=== PATIENT | male | born 1980 | race Caucasian/White ===

== ENCOUNTER 2018-08-11 08:03 | Emergency (ER) | payer MEDICAID, OTHER ==
[~2018-08-11] VITALS: Ht 172.7 cm; Wt 64.0 kg
[2018-08-11 09:27] LABS: BASOPHILS % (AUTO) 1.3 % (0.0-2.0); EOSINOPHILS % (AUTO) 6.3 % (1.0-6.0); HEMOGLOBIN 16.3 g/dL (13.5-17.5); LYMPHOCYTES % (AUTO) 19.8 % (22.0-44.0); MEAN CORPUSCULAR HEMOGLOBIN 34.4 pg (26.0-34.0); MEAN CORPUSCULAR HGB CONC 35.3 G/dL (31.0-37.0); MEAN CORPUSCULAR VOLUME 97 fL (80-100); MONOCYTES # (AUTO) 0.8 K/uL (0.1-1.0); MONOCYTES % (AUTO) 15.9 % (2.0-9.0); NEUTROPHILS # (AUTO) 2.8 K/uL (1.8-7.7); NEUTROPHILS % (AUTO) 56.7 % (40.0-70.0); PLATELET COUNT (AUTO) 246 K/uL (150-450); RED BLOOD CELL COUNT(AUTO) 4.73 MIL/uL (4.50-5.90); RED CELL DISTRIBUTION WIDTH 13.6 % (11.5-14.5)
[2018-08-11 09:37] LABS: ANION GAP 7 mmol/L (8-16); CALCIUM, TOTAL 9.2 mg/dL (8.8-10.5); CARBON DIOXIDE 30 mmol/L (22-29); CHLORIDE 102 mmol/L (98-107); CREATININE 1.05 mg/dL (0.60-1.30); GLOMERULAR FILTR. RATE CALC > 60 mL/min (>60); GLUCOSE,RANDOM 84 mg/dL (70-110); POTASSIUM 3.9 mmol/L (3.5-5.1); SODIUM SERUM 139 mmol/L (136-145); UREA NITROGEN, BLOOD 15 mg/dL (7-18)
[2018-08-11 09:43] LABS: ALANINE AMINOTRANSFERASE 24 U/L (12-78); ALBUMIN 3.7 g/dL (3.4-5.0); ALKALINE PHOSPHATASE 65 U/L (46-116); ASPARTATE AMINOTRANSFERASE 27 U/L (15-37); BILIRUBIN,TOTAL 1.1 mg/dL (0.1-1.0); TOTAL PROTEIN, SERUM 7.3 g/dL (6.4-8.2)
[2018-08-11 10:10] VITALS: BP 143/73
== END 2018-08-11 11:33 | disposition home or self-care (01) ==
LOC: EMS 08:04
DX: F32.9 Major depressive disorder, single episode, unspecified (principal); M79.89 Other specified soft tissue disorders
CPT/HCPCS: 36415; 80053; 85025; 99285; G0480

== ENCOUNTER 2018-08-13 00:19 | Emergency (ER) | payer MEDICAID ==
[~2018-08-13] VITALS: Ht 172.7 cm; Wt 70.5 kg
[2018-08-13 00:34] VITALS: BP 136/66
== END 2018-08-13 01:06 | disposition left against medical advice (07) ==
LOC: EMS 00:19
DX: R44.1 Visual hallucinations (principal); Z53.21 Procedure and treatment not carried out due to patient leaving prior to being seen by health care provider